=== PATIENT | female | born 1995 | race African-American/Black ===

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

== ENCOUNTER → 2017-05-16 12:22 | Outpatient (CLI) | payer MEDICAID ==
[2014-11-11 05:48] VITALS: BMI 27.6
[2017-05-16 13:13] LABS: BASOPHILS 0.2 % (0-2); EOSINOPHILS 0.8 % (0-7); HEMATOCRIT 36.8 % (36.0-48.0); HEMOGLOBIN 11.9 g/dL (12-16); IMMATURE GRANULOCYTES 0.7 % (0-5); LYMPHOCYTES 18.2 % (15-50); MCH 27.4 pg (26.0-34.0); MCHC 32.3 g/dL (31.0-37.0); MCV 84.8 fL (80.0-100.0); MEAN PLATELET VOLUME 9.2 fL (7.4-10.4); MONOCYTES 7.8 % (2-11); NEUTROPHILS 72.3 % (40-80); PLATELET COUNT 194 10x3/uL (130-400); RBC 4.34 10x6/uL (4.00-5.40); RDW 15.3 % (11.5-14.5); WBC 13.3 10x3/uL (4.8-10.8)
[2017-05-16 13:33] LABS: ALBUMIN 2.7 g/dL (3.4-5.0); ALKALINE PHOSPHATASE 90 U/L (46-116); ALT (SGPT) 15 U/L (10-68); BILIRUBIN - TOTAL 0.15 mg/dL (0.2-1.3); CALC OSMOLALITY 269 mosm/kg (275-300); CALCIUM 8.2 mg/dL (8.5-10.1); CARBON DIOXIDE 25.7 mmol/L (21.0-32.0); CHLORIDE - SERUM 103 mmol/L (98-107); CREATININE - SERUM 0.6 mg/dL (0.6-1.3); GLUCOSE 100 mg/dL (74-106); PROTEIN - SERUM 6.7 g/dL (6.4-8.2); SODIUM 136 mmol/L (136-145); UREA NITROGEN 6 mg/dL (7-18); URIC ACID 2.5 mg/dL (2.6-7.2); eGFR NON AFRICAN AMERICAN > 90 mL/min (90-120)
[2017-05-16 13:39] LABS: BILIRUBIN - DIRECT 0.02 mg/dL (0.00-0.30); BILIRUBIN - INDIRECT 0.13 mg/dL (0.00-1.00)
[2017-05-16 14:00] LABS: APPEARANCE CLOUDY (CLEAR); BILIRUBIN NEGATIVE (NEGATIVE); COLOR YELLOW (YELLOW); GLUCOSE 50 mg/dL (NEGATIVE); KETONE NEGATIVE (NEGATIVE); NITRITE NEGATIVE (NEGATIVE); PROTEIN 1+ mg/dL (NEGATIVE); UROBILINOGEN NORMAL (NORMAL)
[2017-05-16 14:01] LABS: BACTERIA MODERATE /hpf (NONE SEEN); MUCUS >1+ /lpf (NONE SEEN); RED CELLS - URINE 0-5 /hpf (0-5)
== END | disposition home or self-care (01) ==
LOC: D.LDO 12:22
PROVIDERS: Obstetrics & Gynecology
DX: O26.893 Other specified pregnancy related conditions, third trimester (principal); Z3A.29 29 weeks gestation of pregnancy

== ENCOUNTER 2017-05-26 00:08 | Outpatient (CLI) | payer MEDICAID ==
[2014-11-11 05:48] VITALS: BMI 27.6
[2017-05-26 00:52] LABS: APPEARANCE CLOUDY (CLEAR); BILIRUBIN NEGATIVE (NEGATIVE); COLOR YELLOW (YELLOW); GLUCOSE NEGATIVE (NEGATIVE); KETONE NEGATIVE (NEGATIVE); NITRITE NEGATIVE (NEGATIVE); PROTEIN NEGATIVE (NEGATIVE); SPECIFIC GRAVITY 1.015 (1.005-1.020); UROBILINOGEN NORMAL (NORMAL)
[2017-05-26 00:54] LABS: BACTERIA MODERATE /hpf (NONE SEEN); EPITHELIAL CELLS 0-5 /hpf (0-5); RED CELLS - URINE 0-5 /hpf (0-5)
== END 2017-05-26 01:38 | disposition home or self-care (01) ==
LOC: D.LDO 00:08
PROVIDERS: Obstetrics & Gynecology
DX: O26.893 Other specified pregnancy related conditions, third trimester (principal); Z3A.31 31 weeks gestation of pregnancy; M54.5 Low back pain; R10.30 Lower abdominal pain, unspecified

== ENCOUNTER → 2017-06-14 16:25 | Outpatient (CLI) | payer MEDICAID ==
[2014-11-11 05:48] VITALS: BMI 27.6
[~2017-06-14 16:25] MED LIST changes: +GLYBURIDE5 M1 PO; +VITAFOL-OB CA1 UDTAB PO
== END | disposition home or self-care (01) ==
LOC: D.LDO 16:25
DX: O16.3 Unspecified maternal hypertension, third trimester (principal); Z3A.33 33 weeks gestation of pregnancy

== ENCOUNTER → 2017-06-21 15:41 | Outpatient (CLI) | payer MEDICAID ==
[2014-11-11 05:48] VITALS: BMI 27.6
== END | disposition home or self-care (01) ==
LOC: D.LDO 15:41
DX: O24.419 Gestational diabetes mellitus in pregnancy, unspecified control (principal); Z3A.34 34 weeks gestation of pregnancy

== ENCOUNTER → 2017-06-24 16:15 | Outpatient (CLI) | payer MEDICAID ==
[2014-11-11 05:48] VITALS: BMI 27.6
== END | disposition home or self-care (01) ==
LOC: D.LDO 16:15
DX: O24.419 Gestational diabetes mellitus in pregnancy, unspecified control (principal); Z3A.35 35 weeks gestation of pregnancy

== ENCOUNTER → 2017-06-29 15:55 | Outpatient (CLI) | payer MEDICAID ==
[2014-11-11 05:48] VITALS: BMI 27.6
== END | disposition home or self-care (01) ==
LOC: D.LABREF 15:55 → D.LDO 15:55
DX: O24.419 Gestational diabetes mellitus in pregnancy, unspecified control (principal); Z3A.35 35 weeks gestation of pregnancy

== ENCOUNTER → 2017-07-02 12:31 | Outpatient (CLI) | payer MEDICAID ==
[2014-11-11 05:48] VITALS: BMI 27.6
== END | disposition home or self-care (01) ==
LOC: D.LDO 12:31
DX: O24.419 Gestational diabetes mellitus in pregnancy, unspecified control (principal); Z3A.36 36 weeks gestation of pregnancy

== ENCOUNTER → 2017-07-03 21:36 | Outpatient (CLI) | payer MEDICAID ==
[2014-11-11 05:48] VITALS: BMI 27.6
[2017-07-03 22:32] LABS: APPEARANCE CLEAR (CLEAR); COLOR YELLOW (YELLOW); GLUCOSE 100 mg/dL (NEGATIVE); KETONE NEGATIVE (NEGATIVE); NITRITE NEGATIVE (NEGATIVE); PROTEIN NEGATIVE (NEGATIVE); SPECIFIC GRAVITY 1.015 (1.005-1.020); UROBILINOGEN NORMAL (NORMAL)
[2017-07-03 22:33] LABS: BILIRUBIN NEGATIVE (NEGATIVE)
[2017-07-03 22:34] LABS: WHITE CELLS - URINE 0-5 /hpf (0-5)
[2017-07-03 22:35] LABS: BACTERIA FEW /hpf (NONE SEEN)
== END | disposition home or self-care (01) ==
LOC: D.LDO 21:36
PROVIDERS: Obstetrics & Gynecology
DX: O26.893 Other specified pregnancy related conditions, third trimester (principal); Z3A.36 36 weeks gestation of pregnancy

== ENCOUNTER → 2017-07-05 16:53 | Outpatient (CLI) | payer MEDICAID ==
[2014-11-11 05:48] VITALS: BMI 27.6
== END | disposition home or self-care (01) ==
LOC: D.LDO 16:53
DX: O24.419 Gestational diabetes mellitus in pregnancy, unspecified control (principal); Z3A.36 36 weeks gestation of pregnancy

== ENCOUNTER → 2017-07-08 12:27 | Outpatient (CLI) | payer MEDICAID ==
[2014-11-11 05:48] VITALS: BMI 27.6
== END | disposition home or self-care (01) ==
LOC: D.LDO 12:27
DX: O24.913 Unspecified diabetes mellitus in pregnancy, third trimester (principal); Z3A.37 37 weeks gestation of pregnancy

== ENCOUNTER 2017-07-12 10:14 | Inpatient (IN) | payer MEDICAID ==
[~2017-07-12] VITALS: Ht 172.7 cm; Wt 127.0 kg
--- NOTE | ~2017-07-12 | OP ---
PATIENT NAME: ELI TORRES MEDICAL RECORD: [id number] :97 LOCATION:[id number] ADMISSION DATE:07/12/17 SURGEON: SAWYER LÓPEZ MD DATE OF OPERATION: 07/12/2017 PREDELIVERY DIAGNOSES: 1. at term in active labor. 2. Gestational diabetes. POSTDELIVERY DIAGNOSES: 1. at term in active labor. 2. Gestational diabetes. PROCEDURE PERFORMED: Spontaneous vaginal delivery. ATTENDING: Sawyer López MD ANESTHESIOLOGIST: Dr. Fernandez FINDINGS: Viable male in the vertex presentation, Apgars were 8 and 9, weight is 8 pounds 13 ounces. First-degree laceration with 2-0 chromic repair. Placenta spontaneous and intact. ESTIMATED BLOOD LOSS: 300 cc. DISPOSITION: Mother and recovered in room. TRANSINT:[id number] Voice Confirmation ID: [id number] DOCUMENT ID: [id number] SAWYER LÓPEZ MD at 1309 CC: [id number] DICTATION DATE: 07/12/172018 SHEAR OPERATOR AUTOMATIC: 07/13/17 0750 ADM IN [facility] [id number] [place] [address]
[2017-07-12 11:07] VITALS: BP 134/74; BMI 42.6
[2017-07-12 13:03] LABS: HEMATOCRIT 39.4 % (36.0-48.0); HEMOGLOBIN 12.6 g/dL (12-16); MCH 26.4 pg (26.0-34.0); MCV 82.4 fL (80.0-100.0); MEAN PLATELET VOLUME 9.7 fL (7.4-10.4); RBC 4.78 10x6/uL (4.00-5.40); RDW 16.4 % (11.5-14.5); WBC 12.1 10x3/uL (4.8-10.8)
[2017-07-12 13:41] LABS: HIV 1 & 2- RAPID SCREEN NEGATIVE (NEGATIVE)
[2017-07-13 00:28] VITALS: BP 121/64
[2017-07-13 07:18] VITALS: BP 145/68
[2017-07-13 07:22] LABS: HEMATOCRIT 32.1 % (36.0-48.0); MCH 25.9 pg (26.0-34.0); MCHC 31.2 g/dL (31.0-37.0); MCV 83.2 fL (80.0-100.0); MEAN PLATELET VOLUME 9.8 fL (7.4-10.4); RBC 3.86 10x6/uL (4.00-5.40); RDW 16.6 % (11.5-14.5); WBC 13.3 10x3/uL (4.8-10.8)
[2017-07-13 07:27] VITALS: BP 123/68
[2017-07-13 07:30] LABS: RAPID PLASMA REAGIN Non Reactive (Non Reactive)
[2017-07-13 11:11] VITALS: Ht 172.7 cm; Wt 127.0 kg
[2017-07-13 16:05] VITALS: BP 132/79
[2017-07-13 19:40] VITALS: BP 126/58
[2017-07-13 23:30] VITALS: BP 96/53
[2017-07-14 07:34] VITALS: BP 123/71
== END 2017-07-14 19:25 | disposition home or self-care (01) | DRG 774 ==
LOC: D.LDO 10:14 → D.LD 10:57 → D.WS 10:57
PROVIDERS: Obstetrics & Gynecology
PROC: 10E0XZZ Delivery of Products of Conception, External Approach (ICD-10-PCS; principal; 2017-07-12)
PROC: 0HQ9XZZ Repair Perineum Skin, External Approach (ICD-10-PCS; 2017-07-12)
DX: O24.429 Gestational diabetes mellitus in childbirth, unspecified control (principal); O98.82 Other maternal infectious and parasitic diseases complicating childbirth; Z3A.37 37 weeks gestation of pregnancy; Z37.0 Single live birth; O70.0 First degree perineal laceration during delivery; O16.4 Unspecified maternal hypertension, complicating childbirth; Z87.891 Personal history of nicotine dependence

== ENCOUNTER 2017-09-06 20:24 | Emergency (ER) | payer MEDICAID ==
[~2017-09-06] VITALS: Ht 172.7 cm; Wt 120.0 kg
[2017-09-06 20:39] VITALS: Ht 172.7 cm; Wt 120.0 kg
[2017-09-06 22:07] LABS: HCG URINE NEGATIVE (NEGATIVE)
[2017-09-06 23:35] VITALS: BP 146/86
== END 2017-09-06 23:37 | disposition home or self-care (01) ==
LOC: D.ER 20:24
PROVIDERS: Urology
DX: O90.89 Other complications of the puerperium, not elsewhere classified (principal); R10.9 Unspecified abdominal pain